=== PATIENT | male | born 1940 | race Caucasian/White ===

== ENCOUNTER 2023-01-23 14:51 | Outpatient (CLI) | payer MEDICARE, BC, SELFPAY | END 2023-01-23 14:52 | disposition home or self-care (01) | PROVIDERS: Visit Provider Nurse Practitioner Family | DX: R22.0 Localized swelling, mass and lump, head (principal); Z51.81 Encounter for therapeutic drug level monitoring | CPT/HCPCS: 80048; 85025 ==

== ENCOUNTER 2023-02-01 10:03 | Outpatient (CLI) | payer MEDICARE, BC, SELFPAY ==
--- NOTE | 2023-02-01 11:00 | CRLHL7_ITS ---
For Patients: As a result of the Century Cures Act, medical imaging exams and procedure reports are released immediately into your electronic medical record. You may view this report before your referring provider. If you have questions, please contact your health care provider. INDICATION: localized swelling mass and lump, lump located on left side right under ear COMPARISON: CT chest 12/12/2022, CT cervical spine 04/27/2022 TECHNIQUE: A CT volumetric acquisition was performed of the neck during intravenous infusion of 95 cc Isovue 370 nonionic intravenous contrast. Please note that all CT scans at this facility use dose modulation, iterative reconstruction, and/or weight-based dosing when appropriate to reduce radiation dose to as low as reasonably achievable. FINDINGS: The CT images demonstrate normal aeration of the mastoid air cells and middle ear cavities. The paranasal sinuses are clear. The nasopharynx appears normal. The right parotid and bilateral submandibular glands are of normal size and have uniform enhancement. There is a nodular structure within the left parotid gland involving the superficial lobe which is unchanged compared to the prior CT cervical spine and is consistent with an intra parotid lymph node. The oropharynx appears normal. The valleculae, epiglottis, aryepiglottic folds and piriform sinuses appear normal. There is a normal appearance of the larynx and subglottic trachea. There is no evidence of lymphadenopathy within the anterior and posterior cervical triangles or within the supraclavicular region. Right hilar adenopathy partially visualized. Enlarged right paratracheal lymph node also visualized. Low-density cysts/nodules within the thyroid are similar. Multilevel degenerative changes noted without fracture. Postoperative changes of CABG. The local ectasia of the posterior [place] circulation. Atherosclerotic changes noted. IMPRESSION: Stable left intra parotid lymph node. No adenopathy within the neck. No fluid collection or abscess. Right hilar adenopathy again noted and partially visualized. Please note that all CT scans at this facility use dose modulation, iterative reconstruction, and/or weight-based dosing when appropriate to reduce radiation dose to as low as reasonably achievable. Dictated by Cuauhtemoc Mendiola MD @ 02/01/2023 12:40:37 PM (Electronically Signed)
== END 2023-02-01 10:04 | disposition home or self-care (01) ==
LOC: CT 10:06
PROVIDERS: PCP Family Medicine; Visit Provider Nurse Practitioner Family
DX: R22.0 Localized swelling, mass and lump, head (principal)
CPT/HCPCS: 70491; Q9967